=== PATIENT | female | born 1950 | race Caucasian/White ===

== ENCOUNTER 2017-03-16 20:19 | Emergency (ER) | payer MEDICARE, BC ==
[~2017-03-16] VITALS: Ht 167.6 cm; Wt 59.0 kg
[2017-03-16] MEDS ORDERED: BUPROPION XL300 MG ORAL (20:58)
[2017-03-16] MEDS ORDERED: Norco 5mg/325mg tab ORAL ONE (21:15)
--- NOTE | 2017-03-16 21:22 | Emergency Room Report ---
History of Present Illness General Chief Complaint: Upper Extremity Injury Source: Patient Present Illness HPI 66 -year-old female walks in with pain to left elbow after accidental slip and fall on acorn outside. Pain is worse with supination or pronation of left forearm. Patient is holding left arm up with right hand. Denies direct trauma to left shoulder, denies falling on her hand/wrist. Denies pain anywhere else, hitting head. Allergies: Uncoded Allergies: NIGERIEN NUTS (Allergy, Unknown, 03/16/17) TONGUE SWELLS Patient History Past Medical History: none Past Surgical History: none Pertinent Family History: none Social History: Denies: smoking, alcohol use, drug use Now: No Immunizations: UTD Reviewed Nursing Documentation: PMH: Agreed, PSxH: Agreed Nursing Documentation-PMH History Of Psychiatric Problem: Yes Review of Systems All Other Systems: negative except mentioned in HPI Physical Exam Vital Signs Date Time Temp Pulse Resp B/P (MAP) Pulse Ox O2 Delivery O2 Flow Rate FiO2 03/16/17 20:53 98.2 83 16 131/89 98 Room Air Sp02 EP Interpretation: reviewed, normal General Appearance: normal inspection, well appearing, no apparent distress, alert, GCS 15, non-toxic Head: normocephalic, atraumatic Eyes: bilateral eye PERRL, bilateral eye EOMI ENT: normal ENT inspection, hearing grossly normal, normal voice Neck: normal inspection, full range of motion, supple, no bony tend Respiratory: normal inspection, lungs clear, normal breath sounds, no respiratory distress, no retraction, no wheezing Cardiovascular #1: regular rate, rhythm, no edema Gastrointestinal: normal inspection, normal bowel sounds, non tender, soft, no guarding, no hernia Genitourinary: no CVA tenderness Musculoskeletal: normal inspection, back normal, normal range of motion, Shanique' s Sign negative, other - patient holding left arm elevated with right hand. Moderate ttp to left elbow. No TTP to left shoulder, humerus, forearm, hand, wrist. Pain worse with supination/pronation only. Neurologic: normal inspection, alert, responsive, speech normal Psychiatric: normal inspection, judgement/insight normal, mood/affect normal Skin: normal inspection, normal color, no rash Medical Decision Making Diagnostic Impression: Primary Impression: Fall Qualified Codes: W19.XXXA - Unspecified fall, initial encounter Additional Impression: Left elbow pain ER Course [id number] with pain to left elbow s/p traumatic fall Xrays negative for acute fx, trauma Given pain with supination/pronation, possible occult fx to radial head Long arm splint placed in ED Rx tylenol [facility] followup strongly recommended ER course: Patient has remained stable during ED stay. Patient is to be discharged to home. Prescriptions given are tylenol Patient is instructed to follow up with their primary care doctor within 5 days. Patient is instructed to follow up with *specialist within 3 days. Strict return precautions discussed with patient such as fever, chills, worsening/severe pain, nausea, vomiting, which may indicate severe illness. Patient verbalizes understanding and agrees with plan. Please note that this Emergency Department Report was dictated using [employer] dipper technology software, occasionally this can lead to erroneous entry secondary to interpretation by the dictation equipment Other X-Ray Diagnostic Results Other X-Ray Diagnostic Results : X-Ray ordered: left elbow # of Views/Limited Vs Complete: 3 View Indication: Pain EP Interpretation: Yes Interpretation: no dislocation, no soft tissue swelling, no fractures, other - buckling near radial head Last Vital Signs Date Time Temp Pulse Resp B/P (MAP) Pulse Ox O2 Delivery O2 Flow Rate FiO2 03/16/17 20:53 98.2 83 16 131/89 98 Room Air Status: improved Disposition: HOME, SELF-CARE Scripts Acetaminophen (Tylenol) 325 Mg Tablet 650 MG ORAL Q6H Y for Prn Pain/Headache/Temp > 101 for 7 Days, #30 TAB 0 Refills Prov: VALD BEST M.D. 03/16/17 VLAD BEST M.D. Mar 16, 2017 21:22
[2017-03-16] MEDS ORDERED: TYLENOL325 MG ORAL (21:59)
[2017-03-16 22:45] VITALS: BP 131/89
[2017-03-16 23:18] VITALS: BP 131/89
--- NOTE | 2017-03-17 11:35 | Diagnostic Imaging Report ---
Indications:PAIN Technique: Three or 4 views of the left elbow Comparison: None Findings:There is a joint effusion, manifested by elevation of anterior and posterior fat pads. There is slight irregularity of the lateral surface of the radial head, although a discrete fracture line is not demonstrated. Impression:Positive for joint effusion, therefore suspicious for fracture. No overt fracture demonstrated, although slight irregularity of the radial head on one view could indicate a subtle radial head fracture. Correlate with clinical findings, consider followup imaging in 7-10 days Review of the electronic medical record indicates that this essentially agrees with the assessment by the ER physician
== END 2017-03-16 23:28 | disposition home or self-care (01) ==
LOC: EMR 21:14
DX: M25.522 Pain in left elbow (principal); W01.0XXA Fall on same level from slipping, tripping and stumbling without subsequent striking against object, initial encounter; Y92.89 Other specified places as the place of occurrence of the external cause; Z91.018 Allergy to other foods
CPT/HCPCS: 99283